=== PATIENT | male | born 1990 | race Caucasian/White ===

== ENCOUNTER 2021-04-24 21:34 | Emergency (ER) | payer OTHER ==
[~2021-04-24] VITALS: Ht 182 cm; Wt 77.1 kg
[2021-04-24 22:11] LABS: BASOPHILS % (AUTO) 1 % (0-10); EOSINOPHILS # (AUTO) 0.2 10^3/uL (0.0-0.3); EOSINOPHILS % (AUTO) 4 % (0-10); HEMATOCRIT 48 % (40-54); HEMOGLOBIN 16.7 g/dL (13.3-17.7); LYMPHOCYTES % (AUTO) 34 % (12-44); MEAN CORPUSCULAR HEMOGLOBIN 30 pg (25-34); MEAN CORPUSCULAR HGB CONC 35 g/dL (32-36); MEAN CORPUSCULAR VOLUME 86 fL (80-99); MEAN PLATELET VOLUME 9.5 fL (9.0-12.2); MONOCYTES # (AUTO) 0.5 10^3/uL (0.0-1.0); MONOCYTES % (AUTO) 9 % (0-12); NEUTROPHILS # (AUTO) 3.1 10^3/uL (1.8-7.8); NEUTROPHILS % (AUTO) 53 % (42-75); PLATELET COUNT 202 10^3/uL (130-400); WHITE BLOOD COUNT 5.9 10^3/uL (4.3-11.0)
[2021-04-24] MEDS ORDERED: KETOROLAC 30 MG/ML VIAL IVP ONE (22:15)
[2021-04-24] MEDS ORDERED: NS IV 1000 ML 1,000 ML IV SCH (22:15)
[2021-04-24] MEDS ORDERED: ONDANSETRON 4 MG/2 ML (SDV) Z0FRAN IVP ONE (22:15)
[2021-04-24 22:16] LABS: BILIRUBIN,URINE NEGATIVE (NEGATIVE); CLARITY,URINE CLEAR; COLOR,URINE YELLOW; GLUCOSE, URINE (UA) NEGATIVE (NEGATIVE); KETONES,URINE NEGATIVE (NEGATIVE); LEUKOCYTE ESTERASE ,URINE NEGATIVE (NEGATIVE); NITRITE,URINE NEGATIVE (NEGATIVE); PH,URINE 7.5 (5-9); PROTEIN,URINE NEGATIVE (NEGATIVE)
[2021-04-24] MEDS ORDERED: ONDANSETRON 4 MG/2 ML (SDV) Z0FRAN ONE (22:17)
[2021-04-24] MEDS ORDERED: NS IV 1000 ML 1,000 ML ONE (22:17)
[2021-04-24] MEDS ORDERED: KETOROLAC 30 MG/ML VIAL ONE (22:17)
[2021-04-24 22:27] LABS: BUN/CREATININE RATIO 14; CALCIUM 9.9 MG/DL (8.5-10.1); CARBON DIOXIDE 27 MMOL/L (21-32); CHLORIDE 103 MMOL/L (98-107); CREATININE SERUM 1.03 MG/DL (0.60-1.30); GFR ESTIMATED > 60; GLUCOSE 92 MG/DL (70-105); POTASSIUM 3.8 MMOL/L (3.6-5.0); SODIUM 140 MMOL/L (135-145)
[2021-04-24 22:34] LABS: BACTERIA,URINE NEGATIVE /HPF; SQUAMOUS EPITHELIAL CELL,UR RARE /HPF
--- NOTE | 2021-04-24 22:40 | ED Abdominal Pain ---
General Chief Complaint: Abdominal/GI Problems Stated Complaint: STOMACH PAIN/ NAUSEA Nursing Triage Note: PT ARRIVES TO ER WITH C/O LOWER ABD PAIN THAT BEGAN YESTERDAY AND WORSENING TODAY WITH SOME NAUSEA Sepsis Screen: No Definite Risk Source of Information: Patient Exam Limitations: No Limitations History of Present Illness Date Seen by Provider: Apr 24, 2021 Time Seen by Provider: 21:40 Initial Comments Patient is a 30-year-old male who presents to the emergency department with 2 days of lower abdominal pain. Patient states his pain started yesterday. He states it started just below the umbilicus. It does not radiate. He is nauseated. He has not vomited. He denies any problems with bowel or bladder. No fevers or chills. He took Tylenol earlier without much relief of symptoms. He is never had any abdominal surgeries. Has never had pain quite like this before. Movement in the right in the car made his pain a little bit worse. Laying stretched out makes his pain a little bit worse. All other review of systems reviewed and negative except as stated above. Timing/Duration: 1-2 Days Severity/Quality: Cramping Location: Suprapubic Activities at Onset: None Modifying Factors: Improves With Coughing Associated Symptoms: Nausea/Vomiting Allergies and Home Medications Allergies Coded Allergies: Penicillins (Verified Allergy, Unknown, 04/24/21) erythromycin base (Verified Allergy, Unknown, 04/24/21) Patient Home Medication List Home Medication List Reviewed: Yes Review of Systems Review of Systems Constitutional: see HPI EENTM: No Symptoms Reported Respiratory: No Symptoms Reported Cardiovascular: No Symptoms Reported Gastrointestinal: Abdominal Pain Genitourinary: No Symptoms Reported Musculoskeletal: no symptoms reported, joint pain Psychiatric/Neurological: No Symptoms Reported All Other Systems Reviewed Negative Unless Noted: Yes Past Jdxxoid-Kdnjic-Apxqzs Hx Patient Social History Recent Infectious Disease Expo: No Physical Exam Vital Signs Vital Signs - First Documented 04/24/21 21:50 Temp 36.9 Pulse 61 Resp 18 B/P (MAP) 147/101 (116) Capillary Refill : Less Than 3 Seconds Height/Weight/BMI Height: '" Weight: lbs. oz. kg; 23.00 BMI Method: General Appearance: WD/WN, no apparent distress Respiratory: lungs clear, normal breath sounds, no respiratory distress Cardiovascular: regular rate, rhythm Gastrointestinal: soft, tenderness (Lower abdomen, infraumbilical across from right to left; equivocal rebound; voluntary guarding; positive psoas) Back: normal inspection, no CVA tenderness Neurologic/Psychiatric: alert, normal mood/affect, oriented x 3 Skin: normal color, warm/dry Progress/Results/Core Measures Results/Orders Lab Results Laboratory Tests Test 04/24/21 22:00 04/24/21 22:10 Range/Units White Blood Count 5.9 4.3-11.0 10^3/uL Red Blood Count 5.51 4.30-5.52 10^6/uL Hemoglobin 16.7 13.3-17.7 g/dL Hematocrit 48 40-54 % Mean Corpuscular Volume 86 80-99 fL Mean Corpuscular Hemoglobin 30 25-34 pg Mean Corpuscular Hemoglobin Concent 35 32-36 g/dL Red Cell Distribution Width 11.9 10.0-14.5 % Platelet Count 202 130-400 10^3/uL Mean Platelet Volume 9.5 9.0-12.2 fL Immature Granulocyte % (Auto) 0 % Neutrophils (%) (Auto) 53 42-75 % Lymphocytes (%) (Auto) 34 12-44 % Monocytes (%) (Auto) 9 0-12 % Eosinophils (%) (Auto) 4 0-10 % Basophils (%) (Auto) 1 0-10 % Neutrophils # (Auto) 3.1 1.8-7.8 10^3/uL Lymphocytes # (Auto) 2.0 1.0-4.0 10^3/uL Monocytes # (Auto) 0.5 0.0-1.0 10^3/uL Eosinophils # (Auto) 0.2 0.0-0.3 10^3/uL Basophils # (Auto) 0.0 0.0-0.1 10^3/uL Immature Granulocyte # (Auto) 0.0 0.0-0.1 10^3/uL Sodium Level 140 135-145 MMOL/L Potassium Level 3.8 3.6-5.0 MMOL/L Chloride Level 103 98-107 MMOL/L Carbon Dioxide Level 27 21-32 MMOL/L Anion Gap 10 5-14 MMOL/L Blood Urea Nitrogen 14 7-18 MG/DL Creatinine 1.03 0.60-1.30 MG/DL Estimat Glomerular Filtration Rate > 60 BUN/Creatinine Ratio 14 Glucose Level 92 70-105 MG/DL Calcium Level 9.9 8.5-10.1 MG/DL Urine Color YELLOW Urine Clarity CLEAR Urine pH 7.5 5-9 Urine Specific [place] 1.015 L 1.016-1.022 Urine Protein NEGATIVE NEGATIVE Urine Glucose (UA) NEGATIVE NEGATIVE Urine Ketones NEGATIVE NEGATIVE Urine Nitrite NEGATIVE NEGATIVE Urine Bilirubin NEGATIVE NEGATIVE Urine Urobilinogen 0.2 < = 1.0 MG/DL Urine Leukocyte Esterase NEGATIVE NEGATIVE Urine RBC (Auto) NEGATIVE NEGATIVE Urine RBC NONE /HPF Urine WBC NONE /HPF Urine Squamous Epithelial Cells RARE /HPF Urine Crystals NONE /LPF Urine Bacteria NEGATIVE /HPF Urine Casts NONE /LPF Urine Mucus NEGATIVE /LPF Urine Other /HPF Urine Culture Indicated NO My Orders Orders - BALJIT HART MD Ed Iv/Invasive Line Start (04/24/21 21:59) Cbc With Automated Diff (04/24/21 21:59) Basic Metabolic Panel (04/24/21 21:59) Ua Culture If Indicated (04/24/21 21:59) Ns Iv 1000 Ml (Sodium Chloride 0.9%) (04/24/21 22:15) Ondansetron Injection (Zofran Injectio (04/24/21 22:15) Ketorolac Injection (Toradol Injection) (04/24/21 22:15) Ct Abd/Pelv W (Appendicitis) (04/24/21 21:59) Iohexol Injection (Omnipaque 350 Mg/Ml 1 (04/24/21 23:15) Received Contrast (Hold Metformin- Contr (04/24/21 23:15) Sodium Chloride Flush (Catheter Flush Sy (04/24/21 23:15) Ns (Ivpb) (Sodium Chloride 0.9% Ivpb Bag (04/24/21 23:15) Ketorolac Injection (Toradol Injection) (04/24/21 22:17) Ondansetron Injection (Zofran Injectio (04/24/21 22:17) Ns Iv 1000 Ml (Sodium Chloride 0.9%) (04/24/21 22:17) Medications Given in ED Current Medications Medications Dose Ordered Sig/Pat Route Start Time Stop Time Status Last Admin Dose Admin Iohexol 100 ml ONCE ONCE IV 04/24/21 23:15 04/24/21 23:16 DC 04/24/21 23:14 100 ML Ketorolac Tromethamine 15 mg ONCE ONCE IVP 04/24/21 22:15 04/24/21 22:16 DC 04/24/21 22:19 15 MG Ondansetron HCl 4 mg ONCE ONCE IVP 04/24/21 22:15 04/24/21 22:16 DC 04/24/21 22:20 4 MG Sodium Chloride 10 ml NEEDED PRN IV 04/24/21 23:15 04/24/21 23:14 10 ML Sodium Chloride 100 ml ONCE ONCE IV 04/24/21 23:15 04/24/21 23:16 DC 04/24/21 23:14 80 ML Vital Signs/I&O 04/24/21 21:50 Temp 36.9 Pulse 61 Resp 18 B/P (MAP) 147/101 (116) 04/25/21 00:00 Intake Total 1000 ml Balance 1000 ml 2 Blood Pressure Mean: 116 Progress Progress Note : Time: 22:45 Progress Note Reevaluated patient, he is still having some lower abdominal discomfort after 15 mg of Toradol IV and about a half a liter of IV fluids. I have reassured the patient about his labs and urinalysis. However, the would like to proceed with a CAT scan secondary to he is supposed to be traveling this week for a voodoo camp. And he still has nausea and some discomfort. We will go ahead and CT abdomen pelvis to rule out any intra-abdominal pathology. Patient's vital signs remained stable. [address] abdomen and pelvis is negative for acute appendicitis. It is mildly enlarged at 7 mm in the short axis according to the stat rad read. He does not have any identifiable bowel periappendiceal inflammatory changes. He does not have a white count or a fever. I did advise the patient that he could still develop acute appendicitis. I have advised him to monitor his symptoms over the next 24 to 48 hours and if he gets a fever or gets worsening nausea vomiting and pain that he needs to come back to the emergency department for reevaluation. The patient and his both verbalized understanding. All questions are sought and answered. Patient is stable for discharge. Diagnostic Imaging Diagonstic Imaging: CT Plain Films/CT/US/NM/MRI: abdomen Comments Per stat rad patient CT abdomen and pelvis shows appendix "mildly enlarged by CT criteria measuring 7 mm in the short axis. There are however no identifiable periappendiceal inflammatory changes." Departure Impression Primary Impression: Abdominal pain Qualified Codes: R10.30 - Lower abdominal pain, unspecified Disposition: 01 HOME, SELF-CARE Condition: Stable Departure-Patient Inst. Decision time for Depature: 00:19 Referrals: [facility] Patient Instructions: Abdominal Pain, Adult ED Add. Discharge Instructions: Drink plenty of fluids to stay well-hydrated. You can take gumu-mss-lyypuqy ibuprofen or Tylenol as needed for abdominal discomfort. If you develop a fever, have worsening abdominal pain especially with nausea and vomiting please come back to the emergency department for reevaluation. BALJIT HART MD Apr 24, 2021 22:40
[2021-04-24] MEDS ORDERED: HOLD METFORMIN - RECEIVED CONTRAST 20 ML VIAL IV SCH (23:15)
[2021-04-24] MEDS ORDERED: NS 100 ML (IVPB) BAG IV ONE (23:15)
[2021-04-24] MEDS ORDERED: IOHEXOL 350 MG/ML 100 ML (OMNIPAQUE 350) VIAL IV ONE (23:15)
[2021-04-24] MEDS ORDERED: CATHETER FLUSH 10 ML SYR IV PRN (23:15)
[2021-04-25 00:25] VITALS: BP 147/101
--- NOTE | 2021-04-25 07:28 | Diagnostic Imaging Report ---
PROCEDURE: CT abdomen and pelvis with contrast, rule out appendicitis. TECHNIQUE: Multiple contiguous axial images were obtained through the abdomen and pelvis after the administration of intravenous contrast. All CT scans use one or more of the following dose optimizing techniques: automated exposure control, MA and/or KvP adjustment based on patient size and exam type or iterative reconstruction. INDICATION: Lower abdominal pain and nausea for 2 days. COMPARISON: None FINDINGS: The lung bases are clear. The heart is normal in size. There is no pericardial effusion. The liver appears normal. The spleen is normal. The pancreas is unremarkable. The adrenal glands appear normal. The kidneys demonstrate no focal lesions and no hydronephrosis. The bowel loops are nondistended without obstruction. The appendix is normal. There is no free fluid or free air. No acute osseous abnormality is seen. IMPRESSION: 1. No acute abnormalities seen in the abdomen or pelvis. No appendicitis. Dictated by: Dictated on workstation # [id number]
== END 2021-04-25 00:22 | disposition home or self-care (01) ==
LOC: ER 21:39
DX: R10.30 Lower abdominal pain, unspecified (principal)
CPT/HCPCS: 36415; 74177; 80048; 81000; 85025

== ENCOUNTER 2021-06-07 20:41 | Emergency (ER) | payer OTHER ==
--- NOTE | 2021-06-07 21:07 | ED Chest Pain ---
General Chief Complaint: Chest Pain Stated Complaint: CHEST PAIN Source: patient, family Exam Limitations: no limitations History of Present Illness Date Seen by Provider: Jun 07, 2021 Time Seen by Provider: 20:50 Initial Comments Patient is a 30-year-old male who presents to the emergency department today with a chief complaint of chest pain. Patient states he has had a burning type of chest pain the last 4 days, describes it as radiating into his shoulder. Fairly constant in nature. He became concerned when it became sharp in nature this evening. He was diagnosed with Covid on May 24. Never had Covid pneumonia. Continues to have some body aches and fatigue. Has had a little right calf pain but no shortness of breath. No recent fevers chills cough or congestion. No nausea vomiting or diarrhea. Has been taking Pepcid daily. All other review of systems reviewed and negative except as stated. Timing/Duration: 1 week Severity/Quality: mild, burning, sharp Location: other (left chest) Radiation: shoulders (left shoulder) Allergies and Home Medications Allergies Coded Allergies: Penicillins (Verified Allergy, Unknown, 04/24/21) erythromycin base (Verified Allergy, Unknown, 04/24/21) Patient Home Medication List Home Medication List Reviewed: Yes Review of Systems Review of Systems Constitutional: see HPI EENTM: No Symptoms Reported Respiratory: No Symptoms Reported Cardiovascular: Chest Pain Genitourinary: No Symptoms Reported Musculoskeletal: muscle cramps Skin: no symptoms reported Psychiatric/Neurological: No Symptoms Reported All Other Systems Reviewed Negative Unless Noted: Yes Past Ovqzktg-Egljxa-Imuryl Hx Patient Social History Tobacco Use?: No Use of E-Cig and/or Vaping dev: No Substance use?: No Pt feels they are or have been: No Immunizations Up To Date Tetanus Booster (TDap): Unknown Seasonal Allergies Seasonal Allergies: No Past Medical History Surgeries: No Respiratory: No Cardiac: No Neurological: No Genitourinary: No Gastrointestinal: No Musculoskeletal: No Endocrine: No HEENT: No Cancer: No Psychosocial: No Integumentary: No Blood Disorders: No Physical Exam Vital Signs Vital Signs - First Documented 06/07/21 20:45 Pulse 78 Resp 16 B/P (MAP) 111/75 (87) Pulse Ox 99 O2 Delivery Room Air Capillary Refill : Height, Weight, BMI Height: '" Weight: lbs. oz. kg; 23.00 BMI Method: General Appearance: No Apparent Distress, WD/WN HEENT: PERRL/EOMI Neck: Normal Inspection Respiratory: Lungs Clear, Normal Breath Sounds, No Accessory Muscle Use, No Respiratory Distress Cardiovascular: Regular Rate, Rhythm Gastrointestinal: Non Tender, Soft Extremity: Normal Capillary Refill, Normal Inspection, No Calf Tenderness, No Pedal Edema Neurologic/Psychiatric: Alert, Oriented x3, No Motor/Sensory Deficits, Normal Mood/Affect Skin: Normal Color, Warm/Dry Progress/Results/Core Measures Results/Orders My Orders Orders - BALJIT HART MD Chest 1 View Ap/Pa Only (06/07/21 20:54) Ekg Tracing (06/07/21 20:55) Vital Signs/I&O 06/07/21 06/07/21 20:45 21:51 Pulse 78 68 Resp 16 16 B/P (MAP) 111/75 (87) 108/70 (87) Pulse Ox 99 99 O2 Delivery Room Air Room Air Progress Progress Note : Time: 21:42 Progress Note 30-year-old male presents with a chief complaint of left upper chest pain. Patient is about 2 weeks post Covid diagnosis. States for the last 4 days he has had some left upper chest "tightness". He states it changed to a "sharp" pain this evening. He states he is noticed his pain more in the evening time. He states when he was lifting up his daughter to put her to bed that is when the pain became worse this evening. He is not short of breath is not coughing. Did not have Covid pneumonia. He is not tachycardic, he is not hypoxic. His blood pressure is normal. He has no leg swelling or pain on palpation. Negative Homans' sign bilaterally. I believe PE is very low on the list of differential diagnosis. I think this is more just an atypical post Covid pain. I have given the patient good return precautions. He verbalized understanding, he and his are comfortable with the discharge plan. I recommended Shayy for dis comfort and to continue the Pepcid. Follow-up with his primary care physician and return if he is worsening or develops new symptoms. All questions are sought and answered. Patient is stable for discharge. Initial ECG Impression Date: Jun 07, 2021 Initial ECG Impression Time: 20:50 Initial ECG Rate: 53 Initial ECG Rhythm: Normal Sinus Initial ECG Intervals: Normal Initial ECG Intervals LA 148 QRS 106 QTc 378 Diagnostic Imaging Diagonstic Imaging: Xray Plain Films/CT/US/NM/MRI: chest Comments NAME: KAELA PIEDRA [facility] REC#: [id number] PT STATUS: REG ER : 1990 PHYSICIAN: BALJIT HART MD ADMIT DATE: 06/07/21/ER FS Draft Date of Exam:06/07/21 CHEST 1 VIEW AP/PA ONLY INDICATION: Mid left chest pain x4 days.. TECHNIQUE: Single view chest 9:05 PM. CORRELATION STUDY: None FINDINGS: The heart size, mediastinal configuration and pulmonary vascularity are within normal limits. The lungs are clear with no consolidating infiltrate. There is no significant effusion or pneumothorax. IMPRESSION: 1. Negative portable chest. Dictated on workstation # [id number] Dict: 06/07/212136 Trans: 06/07/212137 DO [id number] Interpreted by: JORDAN CALI DO Electronically signed by: Departure Impression Primary Impression: Atypical chest pain Disposition: 01 HOME, SELF-CARE Condition: Stable Departure-Patient Inst. Decision time for Depature: 21:40 Referrals: ELISEO NEVAREZ MD (PCP/Family) Primary Care Physician Patient Instructions: Chest Pain That Is Not Caused by the Heart (DC) Add. Discharge Instructions: You can take xnua-kxb-nnllsch Aleve, 2 pills in the morning and 2 at night for chest pain. Always take Aleve with food. Continue your Pepcid twice daily. If you have persistent chest pain, develop shortness of breath, feel lightheaded or dizzy or have any other emergent concerning symptoms please come back to the emergency room for reevaluation. Follow-up with your primary care provider. BALJIT HART MD Jun 07, 2021 21:07
--- NOTE | 2021-06-07 21:38 | Diagnostic Imaging Report ---
INDICATION: Mid left chest pain x4 days.. TECHNIQUE: Single view chest 9:05 PM. CORRELATION STUDY: None FINDINGS: The heart size, mediastinal configuration and pulmonary vascularity are within normal limits. The lungs are clear with no consolidating infiltrate. There is no significant effusion or pneumothorax. IMPRESSION: 1. Negative portable chest. Dictated by: Dictated on workstation # [id number]
[2021-06-07 21:51] VITALS: BP 108/70
== END 2021-06-07 21:51 | disposition home or self-care (01) ==
LOC: EDUNIT# 20:41 → ER FS 20:43
DX: R07.89 Other chest pain (principal); Z86.16 Personal history of COVID-19
CPT/HCPCS: 71045; 93005

== ENCOUNTER 2022-02-05 20:25 | Emergency (ER) | payer OTHER ==
[~2022-02-05] VITALS: Ht 182.8 cm; Wt 78.9 kg
[2022-02-05] MEDS ORDERED: CLIN-144 PO (20:44)
[2022-02-05] MEDS ORDERED: DOXY100T2 PO (20:44)
[2022-02-05] MEDS ORDERED: CLINDAMYCIN 150 MG (CLEOCIN) CAP PO STA (20:46)
[2022-02-05] MEDS ORDERED: DOXYCYCLINE 100 MG (VIBRAMYCIN) TABLET PO STA (20:46)
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
[2022-02-05 20:54] VITALS: BP 141/92
== END 2022-02-05 20:54 | disposition home or self-care (01) ==
LOC: EDUNIT# 20:25 → ER FS 20:29
DX: S01.05XA Open bite of scalp, initial encounter (principal); W50.3XXA Accidental bite by another person, initial encounter; Y93.67 Activity, basketball
CPT/HCPCS: 12001

== ENCOUNTER 2022-02-13 09:26 | Emergency (ER) | payer OTHER ==
[~2022-02-13] VITALS: Ht 182.9 cm; Wt 79.4 kg
[~2022-02-13 09:26] MED LIST: CLIN-144 PO; DOXY100T2 PO
[2022-02-13 09:33] VITALS: BP 141/79
--- NOTE | 2022-02-13 09:41 | ED Suture Removal/Wound Check ---
Suture/Wound Re-check Suture Removal/Wound Recheck : Suture Removal/Wound Recheck: [place] removed by RN General Appearance: WD/WN, no apparent distress Skin Exam: normal color, warm/dry Physical Exam Vital Signs Capillary Refill : General Appearance: WD/WN, no apparent distress HEENT: PERRL/EOMI, other (welll healed laceration with eschar right parietal area. no erythema, fluctuance or drainage) Neurologic/Psychiatric: alert, oriented x 3 Skin: normal color, warm/dry Departure Impression Primary Impression: Encounter for removal of mor Disposition: 01 HOME, SELF-CARE Condition: Stable Departure-Patient Inst. Decision time for Depature: 09:41 Referrals: ELISEO NEVAREZ MD (PCP) Primary Care Physician Patient Instructions: STAPLE REMOVAL - UNCOMPLICATED TEMO AVILA MD Feb 13, 2022 09:41
== END 2022-02-13 09:43 | disposition home or self-care (01) ==
LOC: EDUNIT# 09:26 → ER FS 09:32
DX: Z48.02 Encounter for removal of sutures (principal)